=== PATIENT | female | born 1975 | race Hispanic/Latino ===

== ENCOUNTER 2017-09-24 22:21 | Emergency (ER) | payer BC ==
[~2017-09-24] VITALS: Ht 170.2 cm; Wt 124.5 kg
[~2017-09-24 22:21] MED LIST: LISINOPRIL5 MG PO; LO-DOSE ASPIRIN81 M1 PO; ULTRAM50 MG PO
[2017-09-24 22:42] LABS: ADD MIUA? NO; BILIRUBIN NEGATIVE; BLOOD NEGATIVE; COLOR STRAW ((YELLOW)); GLUCOSE (STRIP) NEGATIVE; KETONES NEGATIVE; LEUKOCYTES NEGATIVE; NITRITE NEGATIVE; PROTEIN (STRIP) NEGATIVE; SPECIFIC GRAVITY 1.004 (1.000-1.030); UCUL ADDED? NO; UROBILINOGEN 0.2 MG/DL (0.2-1.0)
[2017-09-24 22:43] LABS: INTERNAL CONTROL VALID? YES
[2017-09-24 22:57] LABS: HEMATOCRIT 35.2 % (36.0-46.0); MCH 23.2 PG (29.0-34.0); MCHC 30.7 G/DL (30.0-36.0); MCV 75.7 FL (83-99); MEAN PLAT.VOLUME 9.9 uM^3 (9.5-12.4); PLATELET COUNT 435 K/uL (156-360); RBC DIS.WIDTH-CV 17.5 % (11.8-14.6); RED BLOOD COUNT 4.65 M/uL (3.80-5.20); WHITE BLOOD COUNT 13.1 K/uL (4.1-10.2)
[2017-09-24 23:05] LABS: CHLORIDE 105 mEq/L (99-109); POTASSIUM 3.8 mEq/L (3.7-5.4); SODIUM 135 mEq/L (136-147)
[2017-09-24 23:07] LABS: GLUCOSE 98 mg/dL (70-99)
[2017-09-24 23:08] LABS: ANION GAP 6 MEQ/L (2-14)
[2017-09-24 23:09] LABS: TOTAL BILIRUBIN 0.5 mg/dL (0.0-1.0)
[2017-09-24 23:11] LABS: ALKALINE PHOSPHATASE 97 IU/L (3-129); GFR ESTIMATE (CALCULATED) > 59 mL/min/
[2017-09-24 23:12] LABS: UREA NITROGEN (BUN) 11 mg/dL (9-23)
[2017-09-24 23:14] LABS: LIPASE 29 U/L (1.0-51.0)
[2017-09-25] MEDS ORDERED: MOTRIN600 MG PO (05:24)
[2017-09-25] MEDS ORDERED: NORCO 5/3251 TABLET PO (05:24)
[2017-09-25 05:46] VITALS: BP 135/72
[2017-09-25 13:08] LABS: CHLAMYDIA TRACHOMATIS NEGATIVE; NEISSERIA GONORRHOEAE NEGATIVE
== END 2017-09-25 05:50 | disposition home or self-care (01) ==
LOC: RME 22:21 → EME 22:21 → RME 09-25 05:50
PROVIDERS: Emergency Medicine; Nurse Practitioner Family
DX: K52.9 Noninfective gastroenteritis and colitis, unspecified (principal); N83.201 Unspecified ovarian cyst, right side; I10 Essential (primary) hypertension
CPT/HCPCS: 74177; 76856; 80053; 81003; 83690; 84703; 85027; 87086; 87210; 87491; 87591; 99281; 99285; J3010; J7030